=== PATIENT | female | born 1950 | race Caucasian/White ===

== ENCOUNTER → 2017-02-10 | Outpatient (CLI) | payer OTHER ==
--- NOTE | 2017-02-10 09:27 | DIAGNOSTIC IMAGING REPORT ---
RIGHT FOOT MIN 3 VIEWS CLINICAL HISTORY: Right foot pain COMPARISON: None. DISCUSSION: No fractures or dislocations are visualized. There are no erosive or destructive changes. There is a tiny plantar calcaneal spur. Bony mineralization appears normal for age. IMPRESSION: 1. No acute fractures 2. Normal bony mineralization 3. No evidence of erosive disease Electronically signed by: Boaz King M.D. 02/10/2017 9:25 AM Dictated Date/Time: 02/10/2017 9:24 AM
== END | disposition home or self-care (01) ==
LOC: C.RDSM 13:39
PROVIDERS: ATTEND Family Medicine
DX: M77.41 Metatarsalgia, right foot (principal)

== ENCOUNTER → 2017-06-13 | Outpatient (CLI) | payer OTHER ==
--- NOTE | 2017-06-13 15:24 | MAMMOGRAPHY REPORT ---
BILATERAL DIGITAL SCREENING MAMMOGRAM WITH CAD: 06/13/2017 CLINICAL HISTORY: Routine screening. Patient has no complaints. TECHNIQUE: Bilateral CC and MLO views were obtained. Current study was also evaluated with a Comput er Aided Detection (CAD) system. COMPARISON: Comparison is made to exams dated: 06/09/2016 mammogram - [facility], mammogram, 03/26/2013 mammogram, 11/26/2011 mammogram, and 10/02/2011 mammogram. BREAST COMPOSITION: There are scattered areas of fibroglandular density in both breasts. FINDINGS: The parenchymal pattern is similar to prior mammograms. No developing mass, architectural distortion or cluster of suspicious microcalcifications is seen in either breast. IMPRESSION: ACR BI-RADS CATEGORY 2: BENIGN There is no mammographic evidence of malignancy. A 1 year screening mammogram is recommended. The pa tient will receive written notification of the results. Approximately 10% of breast cancers are not detected with mammography. A negative mammographic report should not delay biopsy if a clinically suggestive mass is present. Dalila Hoffman M.D. ay/:06/13/2017 10:01:06 Rail Maintenance Worker: Evelyn PERSAUD(R)(M), [facility] letter sent: Normal 1/2 BI-RADS Code: ACR BI-RADS Category 2: Benign
== END | disposition home or self-care (01) ==
LOC: C.MAMM 08:09
PROVIDERS: ATTEND Physician Assistant
DX: Z12.31 Encounter for screening mammogram for malignant neoplasm of breast (principal); Z13.820 Encounter for screening for osteoporosis; M85.88 Other specified disorders of bone density and structure, other site; M85.851 Other specified disorders of bone density and structure, right thigh; M85.852 Other specified disorders of bone density and structure, left thigh

== ENCOUNTER → 2018-06-14 | Outpatient (CLI) | payer OTHER ==
[~2018-06-14] MED LIST: ATEN-175 PO; CALC500C70 PO; IBUP-103 PO; MAXZIDE PO; META-38 PO; PRLSR20 PO; THERA-TEARS OPB; TIZA4CAP PO; VOLTAREN GEL TOP
--- NOTE | 2018-06-14 13:39 | MAMMOGRAPHY REPORT ---
BILATERAL DIGITAL SCREENING MAMMOGRAM TOMOSYNTHESIS WITH CAD: 06/14/2018 CLINICAL HISTORY: Routine screening. TECHNIQUE: The study was acquired using full field digital technology and interpreted from soft copy. Breast tomosynthesis in addition to standard 2D mammography was performed. Current study was also ev aluated with a Computer Aided Detection (CAD) system. COMPARISON: Comparison is made to exams dated: 06/13/2017 mammogram, 06/09/2016 mammogram - [facility], 06/28/2014 mammogram, 03/26/2013 mammogram, 11/26/2011 mammogram, and 10/02/2011 mammog anish. BREAST COMPOSITION: There are scattered areas of fibroglandular density in both breasts. FINDINGS: Stable focal asymmetry in the upper outer middle to anterior left breast, and stable nodula r asymmetry in the medial anterior left breast on the CC view. No suspicious mass, architectural dist ortion or cluster of microcalcifications is seen. IMPRESSION: ACR BI-RADS CATEGORY 1: NEGATIVE There is no mammographic evidence of malignancy. A 1 year screening mammogram is recommended.( [id number]) The patient will receive written notification of the results. Some breast cancers are not detected with mammography. A negative mammographic report should not patricio y biopsy if a clinically suggestive mass is present. Dalila Hoffman M.D. ay/:06/14/2018 09:16:48 Chief Medical Technologist: RT Kacy(R)(M), [facility] letter sent: Normal 1/2 BI-RADS Code: ACR BI-RADS Category 1: Negative
== END | disposition home or self-care (01) ==
LOC: C.MAMM 08:17
PROVIDERS: ATTEND Physician Assistant
DX: Z12.31 Encounter for screening mammogram for malignant neoplasm of breast (principal)